=== PATIENT | female | born 1975 | race Asian ===

== ENCOUNTER 2018-04-28 09:24 | Outpatient (CLI) | payer OTHER ==
--- NOTE | 2018-04-28 12:31 | Diagnostic Imaging Report ---
Left foot (3 views) HISTORY: Mass. No focal bony lesions no fractures. No radiographic evidence of osteomyelitis. Joint spaces appear normal. No abnormal soft tissue calcifications. Suggestion of mild focal soft tissue swelling noted over the dorsal aspect of the foot. IMPRESSION: 1. No acute focal bony abnormalities 2. Suggestion of mild focal soft tissue swelling over the dorsal aspect of the foot.
== END 2018-04-28 09:40 | disposition home or self-care (01) ==
LOC: RAD 09:24
PROVIDERS: ATTEND Family Medicine
DX: R22.42 Localized swelling, mass and lump, left lower limb (principal)
CPT/HCPCS: 73630-TC-LT